=== PATIENT | male | born 1995 | race Caucasian/White ===

== ENCOUNTER 2020-01-16 01:01 | Emergency (ER) | payer SELFPAY ==
[~2020-01-16] VITALS: Ht 190.5 cm; Wt 81.6 kg
--- NOTE | 2020-01-16 01:02 | NUR ---
PT AAOX4. AMBULATORY WITH STEADY GAIT. BIBSELF C/O RAPID HR. PT STATED HE WAS PLAYING VIDEO GAMES THEN HIS HR STARTED TO GO UP. HR 130, PLACED ON MONITOR AND PULSE OX. VSS. PT DENIES CP. APPEARS ANXIOUS. VSJewel. AT BEDSIDE FOR EVAL.
[2020-01-16] MEDS ORDERED: ONDANSETRON HCL/PF 4 MG/2 ML VIAL ONE (01:12)
[2020-01-16] MEDS ORDERED: LORAZEPAM INJ 2 MG/ML VIAL ONE (01:13)
--- NOTE | 2020-01-16 01:28 | NUR ---
URINE AND LABS COLLECTED BY DESIGN INSERTER
[2020-01-16 01:29] LABS: BASOPHILS # (AUTO) 0.1 /CMM (0.0-0.2); BASOPHILS % (AUTO) 0.7 % (0.0-2.0); EOSINOPHILS % (AUTO) 2.2 % (0.0-6.0); HEMATOCRIT 48 % (39-51); HEMOGLOBIN 16.6 g/dL (13.5-17.5); LYMPHOCYTES # (AUTO) 3.9 /CMM (0.8-4.8); MEAN CORPUSCULAR HGB CONC 34 g/dl (31.0-36.0); MEAN CORPUSCULAR VOLUME 94 fL (80-96); MONOCYTES # (AUTO) 0.7 /CMM (0.1-1.30); MONOCYTES % (AUTO) 8.8 % (2.0-12.0); NEUTROPHILS # (AUTO) 3.4 /CMM (1.8-8.9); NEUTROPHILS % (AUTO) 41.3 % (43.0-81.0); PLATELET COUNT (AUTO) 253 /CMM (150-450); RED BLOOD CELL COUNT(AUTO) 5.13 MIL/uL (4.5-6.0); WHITE BLOOD COUNT (AUTO) 8.3 K/uL (4.3-11.0)
[2020-01-16] MEDS ORDERED: ONDANSETRON HCL/PF 4 MG/2 ML VIAL IVP ONE (01:30)
[2020-01-16] MEDS ORDERED: IV NS 0.9% 1,000 ML BAG IV ONE (01:30)
[2020-01-16] MEDS ORDERED: LORAZEPAM INJ 2 MG/ML VIAL IV ONE (01:30)
[2020-01-16 01:44] LABS: ACETAMINOPHEN 0 ug/ml (10-30); ALCOHOL, BLOOD < 3 mg/dL (0-0); SALICYLATE 1.4 mg/dL (2.8-20.0)
[2020-01-16 01:47] LABS: ALANINE AMINOTRANSFERASE 27 U/L (12-78); ALKALINE PHOSPHATASE 76 U/L (46-116); ASPARTATE AMINOTRANSFERASE 17 U/L (15-37); B-TYPE NATRIURETIC PEPTIDE < 5 PG/ML (0-125); BILIRUBIN,DIRECT 0.1 mg/dL (0.0-0.2); BILIRUBIN,TOTAL 0.6 mg/dL (0.2-1.0); CALCIUM, SERUM 9.2 mg/dL (8.5-10.1); CARBON DIOXIDE 23 mmol/L (21-32); CHLORIDE 101 mmol/L (98-107); CREATININE 1.2 mg/dL (0.6-1.3); GLUCOSE 135 mg/dL (74-106); SODIUM SERUM 138 mmol/L (136-145); TOTAL PROTEIN, SERUM 7.7 g/dL (6.4-8.2); UREA NITROGEN, BLOOD 16 mg/dL (7-18)
--- NOTE | 2020-01-16 01:48 | NUR ---
POTASSIUM 2.7
[2020-01-16 01:49] LABS: POTASSIUM 2.7 mmol/L (3.5-5.1)
[2020-01-16] MEDS ORDERED: POTASSIUM CHLORIDE 20 MEQ TAB.PRT.SR PO ONE ×2 (01:50→02:00)
--- NOTE | 2020-01-16 02:48 | NUR ---
PT HR IS 87. VSS.
--- NOTE | 2020-01-16 03:38 | NUR ---
PT RESTING COMFORTABLY. VSS.
--- NOTE | 2020-01-16 04:27 | NUR ---
Patient is resting comfortably in bed with eyes closed. Easily aroused. VSS.
[2020-01-16 05:31] VITALS: BP 121/79
--- NOTE | 2020-01-16 05:31 | NUR ---
Patient discharged to home in stable condition. Written and verbal after care instructions given. Patient verbalizes understanding of instruction. IV removed. Catheter intact and site benign. Pressure and 4x4 applied to site. No bleeding noted.
== END 2020-01-16 05:32 | disposition home or self-care (01) ==
LOC: ER 01:01
DX: R00.2 Palpitations (principal); R07.89 Other chest pain
CPT/HCPCS: 36415; 71045; 80048; 80076; 80305; 80307; 80329; 83880; 84484; 85025; 85730; 93005 ×2; 96374; 96375; 99285; G0480; J2060; J2405; J7030

== ENCOUNTER 2020-02-25 00:03 | Emergency (ER) | payer OTHER ==
[~2020-02-25] VITALS: Ht 190.5 cm; Wt 84.8 kg
[2020-02-25 00:19] VITALS: BP 151/84
--- NOTE | 2020-02-25 00:35 | NUR ---
URINE COLLECTED AND SENT TO THE LAB
[2020-02-25 00:55] LABS: APPEARANCE,URINE Clear (CLEAR); BILIRUBIN,URINE Negative (NEGATIVE); BLOOD, URINE Large Ery/uL (NEGATIVE); KETONES,URINE Negative (NEGATIVE); LEUKOCYTE ESTERASE ,URINE Negative (NEGATIVE); NITRITE, URINE Negative (NEGATIVE); PROTEIN,URINE 100 mg/dl (NEGATIVE); UGLUCOSE Negative (NEGATIVE); UROBILINOGEN,URINE 0.2 EU/dL (0.2)
[2020-02-25 01:03] LABS: COLOR,URINE AMBER (YELLOW)
[2020-02-25 01:29] LABS: BACTERIA,URINE None seen /HPF (None Seen); SQUAMOUS EPITHELIAL CELL,UR Few /HPF (None Seen); WBC,URINE 0-2 /HPF (0-3)
[2020-02-25] MEDS ORDERED: LORAZEPAM 1 MG TABLET PO ONE (01:30)
--- NOTE | 2020-02-25 01:30 | NUR ---
Patient discharged to home in stable condition. Written and verbal after care instructions given. Patient verbalizes understanding of instruction.pt. ambulatory with a steady gait
== END 2020-02-25 01:31 | disposition home or self-care (01) ==
LOC: ER 00:06
DX: R00.2 Palpitations (principal); F41.9 Anxiety disorder, unspecified; R30.0 Dysuria
CPT/HCPCS: 81000-TC

== ENCOUNTER 2020-04-29 02:36 | Emergency (ER) | payer OTHER ==
[~2020-04-29] VITALS: Ht 190.5 cm; Wt 81.6 kg
[2020-04-29 02:45] VITALS: BP 140/90
--- NOTE | 2020-04-29 02:50 | NUR ---
PT CAME TO THE ER C/O CHEST TIGHTNESS X 1 DAY. -SOB -N/V. PT AAOX4, VSS, RESPIRATIONS EVEN AND UNLABORED ON RA W/ NAD NOTED. PT CONNECTED TO THE MONITOR AND POX.
--- NOTE | 2020-04-29 03:18 | NUR ---
EKG AT BEDSIDE
--- NOTE | 2020-04-29 03:18 | NUR ---
Tristan mandujano in [facility] - 04/29/20 at 0318 by KOJO XRAY AT BEDSIDE
--- NOTE | 2020-04-29 04:00 | NUR ---
PT'S CHEST DISCOMFORT RELIEVED.
--- NOTE | 2020-04-29 04:18 | NUR ---
Patient discharged to home in stable condition. Written and verbal after care instructions given. Patient verbalizes understanding of instruction.
== END 2020-04-29 04:19 | disposition home or self-care (01) ==
LOC: ER 02:38
DX: R07.89 Other chest pain (principal)
CPT/HCPCS: 71045-TC